=== PATIENT | male | born 1935 | race Caucasian/White ===

== ENCOUNTER 2023-04-15 11:36 | Outpatient (CLI) | payer MEDICARE, BC ==
[2023-04-15] VITALS (8 sets, daily range): BP systolic 113–132; BP diastolic 60–87; PULSE 44–79; TEMP 98.1
[~2023-04-15] VITALS: Ht 183 cm; Wt 97.4 kg
[2023-04-15] MEDS ORDERED: ZYLOPRIM 100MG100 MG PO (12:33)
[2023-04-15] MEDS ORDERED: LIPITOR20 MG PO (12:34)
[2023-04-15] MEDS ORDERED: ELIQUIS 2.5 PO (12:34)
[2023-04-15] MEDS ORDERED: ASPIRIN E.C. 8181 MG PO (12:34)
[2023-04-15] MEDS ORDERED: CALCIUM 600 PLU1 TAB PO (12:35)
[2023-04-15] MEDS ORDERED: FISH OIL 1000MG1 CAP PO (12:35)
[2023-04-15] MEDS ORDERED: FLONASEALLERGY NS (12:36)
[2023-04-15] MEDS ORDERED: LUTEIN20 M1 PO (12:37)
[2023-04-15] MEDS ORDERED: LASIX 40MG TABL40 MG PO (12:37)
[2023-04-15] MEDS ORDERED: TOPROL XL 25MG25 MG PO (12:43)
[2023-04-15] MEDS ORDERED: NITROSTAT0.4 MG/TAB SL (12:43)
[2023-04-15] MEDS ORDERED: PROTONIX 40MG T40 MG PO (12:44)
[2023-04-15] MEDS ORDERED: FLOMAX 0.40.4 MG/CAP PO (12:44)
--- NOTE | 2023-04-15 14:28 | NUR ---
Refer to [employer] report for procedural sedation/notes
[2023-04-15] MEDS ORDERED: Iohexol 300 - 100 ML VIAL IV ONE (15:17)
[2023-04-15] MEDS ORDERED: fentaNYL 50 MCG/ML 2 ML VIAL IV SCH (15:19)
[2023-04-15] MEDS ORDERED: Midazolam 2 MG/2 ML VIAL IV SCH (15:20)
== END 2023-04-15 17:30 | disposition home or self-care (01) ==
LOC: COL.CAR 11:36
DX: T82.590A Other mechanical complication of surgically created arteriovenous fistula, initial encounter (principal)
CPT/HCPCS: J1644; J2250; J3010; Q9967

== ENCOUNTER 2023-05-19 15:08 | Inpatient (IN) | payer MEDICARE, BC ==
[~2023-05-19] VITALS: Ht 180.3 cm; Wt 98.4 kg
[2023-05-19] VITALS (8 sets, daily range): BP systolic 109–154; BP diastolic 43–60; PULSE 90–96; TEMP 98.3–99
[~2023-05-19 15:08] MED LIST: ASPIRIN E.C. 8181 MG PO; CALCIUM 600 PLU1 TAB PO; ELIQUIS 2.5 PO; FISH OIL 1000MG1 CAP PO; FLOMAX 0.40.4 MG/CAP PO; FLONASEALLERGY NS; LASIX 80MG TABL80 MG PO; LIPITOR20 MG PO; LUTEIN20 M1 PO; NITROSTAT0.4 MG/TAB SL; PROTONIX 40MG T40 MG PO; TOPROL XL 25MG25 MG PO; ZYLOPRIM 100MG100 MG PO
[2023-05-19] MEDS ORDERED: NS 500 ML IV ONE (15:30)
[2023-05-19 15:54] LABS: BASO # 0.1 K/mm3 (0.0-0.2); BASO % 0.8 % (0.0-2.0); EOS % 0.3 % (0.0-4.0); GRAN # 5.3 K/mm3 (1.4-6.5); LYMPH # 0.8 K/mm3 (1.2-3.4); LYMPH % 11.9 % (20.0-51.0); MEAN CELL VOLUME 97 fl (80.0-100.0); MEAN CORPUSCULAR HGB CONC 32 g/dl (33.0-37.0); MEAN PLATELET VOLUME 10.3 fl (7.4-10.4); MONO # 0.5 K/mm3 (0.1-0.6); MONO % 7.5 % (1.7-9.3); PLATELET COUNT 95 K/mm3 (130-400); RED BLOOD COUNT 1.73 M/mm3 (4.20-5.60); REDCELL DISTRIBUTION WIDTH-CV 16.7 % (11.5-14.5)
[2023-05-19 16:05] LABS: HEMATOCRIT 16.7 % (42.0-52.0); HEMOGLOBIN 5.3 g/dl (13.5-18.0); MEAN CORPUSCULAR HEMOGLOBIN 31 pg (27-31)
[2023-05-19 16:08] LABS: ALBUMIN 2.8 gm/dL (3.4-4.8); BILIRUBIN,TOTAL 0.3 mg/dL (0.2-1.2); CALCIUM 7.9 mg/dL (8.4-10.2); CREATININE, serum 2.13 mg/dL (0.72-1.25); MAGNESIUM 1.9 mg/dL (1.6-2.6); TOTAL PROTEIN 5.5 gm/dL (6.2-8.1)
[2023-05-19] MEDS ORDERED: Ondansetron 4 MG/2 ML VIAL IV PRN (17:00)
[2023-05-19] MEDS ORDERED: Acetaminophen 500 MG TAB PO PRN (17:00)
--- NOTE | 2023-05-19 17:33 | NUR ---
PATIENT ARRIVED TO MEDICAL FLOOR AT APPROX 1700.
--- NOTE | 2023-05-19 18:24 | NUR ---
PATIENT RESTING IN BED. ALERT AND ORIENTED. ADMISSION ASSESSMENT AND INTAKE COMPLETE. PATIENT ABLE TO ANSWER ALL QUESTIONS. PATIENT STATED HE IS INCONINENT OF URINE AND OCCASIONALLY STOOL. BLOOD TINGED STOOL NOTED DURING BRIEF CHANGE. PATIENT'S SKIN IS FLAKY AND THIN. OPEN BLISTER NOTED TO LEFT OUTER ANKLE. FALL PRECAUTIONS IN PLACE. CALL LIGHT WITHIN REACH.
[2023-05-19] MEDS ORDERED: NS IV ONE (19:15)
[2023-05-19] MEDS ORDERED: PANTOPRAZOLE IV ONE (19:15)
[2023-05-19] MEDS ORDERED: [UNRECOGNIZED DRUG - OTHER] IV ONE (19:15)
[2023-05-19] MEDS ORDERED: CORDARONE200 MG/TAB PO (20:06)
[2023-05-19] MEDS ORDERED: Fluticasone Nasal 50 MCG/Spray 16 GM BOTTLE NS PRN (20:15)
[2023-05-19] MEDS ORDERED: Atorvastatin 20 MG TAB PO SCH (21:00)
[2023-05-20] VITALS (24 sets, daily range): BP systolic 83–142; BP diastolic 45–67; PULSE 88–141; TEMP 98.1–99.4
--- NOTE | 2023-05-20 00:44 | NUR ---
Patient lying in bed alert and oriented x4. pt denies chest pain and shortness of breath. director hair with pt to sign blood transfusion consent, completed. 1 unit of PRBC started at 1949 running at 60 ml/hr, this RN stayed at pt bedside for first 15 minutes, vitals stable, no pt concerns, rate adjusted to 125 ml/hr, transfusion ended at 2243. additional unit and recheck for am ordered by TUAN Everett notified at 2256 for official orders, placed, [facility] notified. 2nd unit of PRBC started at 0040, running at 60 ml/hr, vitals stable at this time. IV in RAC is patent, site is cleand dry and intact with blood transfusion running. left arm AV fistula with guaze covering and right chest catheter, with gauze dressing are clean dry and intact. dry scaly BLE with red/purplish coloring, small left outer ankle abrasion, dry blood noted, open to air. pt experiencing gas but has had no stool at this time and has no further needs, questions, or concerns at this time. fall precautions in place, call light within reach. will continue to monitor.
[2023-05-20 06:46] LABS: BASO # 0.1 K/mm3 (0.0-0.2); EOS # 0.1 K/mm3 (0.0-0.7); GRAN # 3.7 K/mm3 (1.4-6.5); GRAN % 62.5 % (42.2-75.2); LYMPH # 1.4 K/mm3 (1.2-3.4); MEAN CORPUSCULAR HGB CONC 35 g/dl (33.0-37.0); MEAN PLATELET VOLUME 10.3 fl (7.4-10.4); MONO # 0.6 K/mm3 (0.1-0.6); PLATELET COUNT 82 K/mm3 (130-400); RED BLOOD COUNT 1.93 M/mm3 (4.20-5.60); REDCELL DISTRIBUTION WIDTH-CV 17.4 % (11.5-14.5)
[2023-05-20 06:54] LABS: INR 1.3 (0.8-3.0); PROTHROMBIN TIME 13.7 SECONDS (9.7-12.8)
[2023-05-20 07:04] LABS: CALCIUM 7.4 mg/dL (8.4-10.2); CREATININE, serum 2.91 mg/dL (0.72-1.25); PHOSPHOROUS 3.9 mg/dL (2.3-4.7); POTASSIUM 3.9 mmol/L (3.5-4.5)
[2023-05-20 07:11] LABS: MEAN CELL VOLUME 90 fl (80.0-100.0); MEAN CORPUSCULAR HEMOGLOBIN 31 pg (27-31)
[2023-05-20 07:14] LABS: HEMATOCRIT 17.4 % (42.0-52.0)
--- NOTE | 2023-05-20 08:20 | NUR ---
PT LAYING IN BED UPON ENTERING. ASSESSMENT DONE, MEDS GIVEN WITH SMALL SIPS OF WATER. PT DENIES PAIN AND UPDATED ON BLOOD TRANSFUSION AND EGD PLANNED FOR THE DAY. PT VERBALIZED UNDERSTANDING AND BLOOD CONSENT SIGNED, EGD CONSENT NOT SIGNED DUE TO PT NOT BEING EDUCATED BY PROVIDER. INT TO RIGHT AC PATENT. PT HAS RIGHT CHEST HD PORT AND A FISTULA IN THE PROCESS OF BEING PLACED TO LEFT FOREARM. PT HAS A SMALL ABRASION TO LEFT ANKLE OPEN TO AIR. PT DENIES NEEDS. BED IN LOWEST POSITION, CALL LIGHT IN REACH, BED ALARM ON.
[2023-05-20] MEDS ORDERED: Allopurinol 100 MG TAB PO SCH (09:00)
[2023-05-20] MEDS ORDERED: Lutein 20 MG CAP PO SCH (09:00)
[2023-05-20] MEDS ORDERED: Amiodarone 200 MG TAB PO SCH (09:00)
[2023-05-20] MEDS ORDERED: Pantoprazole 40 MG in NS 10 ML IV SCH (09:00)
[2023-05-20] MEDS ORDERED: NS 1,000 ML IV SCH ×2 (13:00→16:00)
--- NOTE | 2023-05-20 13:21 | NUR ---
Ethylbenzene Oxidizer met with patient to discuss discharge planning. Patient lives alone in [place], [place] and sees Dr. Peña in [place] for primary care. Patient stated he does not drive himself to appointments, but takes the "[employer] bus". Patient uses both a cane and walker at home, reporting independence with ADLS. Patient stated his granddaughter helps him with shopping. Patient stated he believes his son, Henry (ph#[phone]) is his DPOA-HC. Patient advised his plan is to return home at time of discharge. SW contacted patient's son, Henry to discuss discharge planning. Henry requested SW contacted his sister, Adenike (ph#[phone]) who is an Occupation Therapist and a better point of contact for discussion of discharge planning. SW contacted Adenike who confirmed the above information and advised patient has a pretty good set up at home, however she is open to any recommendations. Adenike stated patient gets dialysis at [facility] and takes public transportation to this. Adenike advised if public transportation is unavailable, family is able to transport. Adenike stated she lives in [place] and her two brothers don't live locally, but that there is extended family available for assistance if needed. Adenike also provided that patient has a bed that can raise up along with a lift chair. CHACHO advised she would keep her updated with any discharge recommendations. Discharge Plan: Home, pending further recommendation
--- NOTE | 2023-05-20 13:37 | NUR ---
PT IN ENDO. BLOOD TRANSFUSION NOT COMPLETE, ENDO NURSE NOTIFIED AND TOOK PT DOWN WITH BLOOD INFUSING
[2023-05-20] MEDS ORDERED: Lidocaine PF 2% (20 MG/ML) 5 ML VIAL ONE (13:48)
[2023-05-20] MEDS ORDERED: Ondansetron 4 MG/2 ML VIAL IV PRN (14:15)
--- NOTE | 2023-05-20 15:03 | NUR ---
PT BACK FROM ENDO AND BLOOD COMPLETE. PT DENIES NEEDS AND GIVEN BROTH. FAMILY AT BEDSIDE. BED IN LOWEST POSITION, CALL LIGHT IN REACH, BED ALARM ON
--- NOTE | 2023-05-20 15:05 | NUR ---
ULISESITSAVANNAHT CALLED AND ASKED IF SHE WANTED A REPEAT H&H AFTER PTS BLOOD TRANSFUSION IS COMPLETE. HOSPITALIST OKAY WITH LAB BEING CHECKED WITH MORNING LABS ON 05/20.
[2023-05-20] MEDS ORDERED: PEG3350/Sod Sulf,Bicarb,Cl/KCl Oral Soln 4,000 ML Bottle PO SCH (17:30)
--- NOTE | 2023-05-20 18:45 | NUR ---
PT REPORTS DECREASED CHEST PAIN AND SOME SHORTNESS OF BREATH. HOSPITALIST NOTIFIED AND EKG ORDERED. PT EDUCATED ON BOWEL PREP AND VERBALIZED UNDERSTANDING.
[2023-05-20 19:12] LABS: BASO # 0.1 K/mm3 (0.0-0.2); EOS # 0.1 K/mm3 (0.0-0.7); EOS % 1.5 % (0.0-4.0); GRAN # 4.6 K/mm3 (1.4-6.5); GRAN % 66.6 % (42.2-75.2); LYMPH # 1.5 K/mm3 (1.2-3.4); LYMPH % 21.6 % (20.0-51.0); MEAN CELL VOLUME 90 fl (80.0-100.0); MEAN CORPUSCULAR HGB CONC 35 g/dl (33.0-37.0); MEAN PLATELET VOLUME 10.3 fl (7.4-10.4); MONO # 0.6 K/mm3 (0.1-0.6); MONO % 8.9 % (1.7-9.3); PLATELET COUNT 88 K/mm3 (130-400); RED BLOOD COUNT 2.03 M/mm3 (4.20-5.60); REDCELL DISTRIBUTION WIDTH-CV 17.2 % (11.5-14.5)
[2023-05-20 19:26] LABS: HEMATOCRIT 18.2 % (42.0-52.0); HEMOGLOBIN 6.3 g/dl (13.5-18.0); MEAN CORPUSCULAR HEMOGLOBIN 31 pg (27-31)
[2023-05-20 19:27] LABS: CALCIUM 7.4 mg/dL (8.4-10.2); CREATININE, serum 2.99 mg/dL (0.72-1.25); POTASSIUM 3.8 mmol/L (3.5-4.5)
[2023-05-20 19:44] LABS: TROPONIN-I 0.048 ng/mL (0.00-0.033)
[2023-05-20] MEDS ORDERED: NS 500 ML IV ONE (22:30)
[2023-05-21] VITALS (21 sets, daily range): BP systolic 99–130; BP diastolic 41–72; PULSE 73–139; TEMP 97.9–98.9
--- NOTE | 2023-05-21 02:20 | NUR ---
Noted that patient has a MEWs score of 4 due to blood pressure and pulse. Patient is currently getting blood transfusion due to GI Bleed. WESTON Brand has been notified of vitals. No new orders received. Will continue to monitor.
--- NOTE | 2023-05-21 03:25 | NUR ---
patient lying in bed, alert and oriented x4. pt denies chest pain and shortness of breath. 2004- TUAN Everett notified of critical labs, HGB 6.3 and troponin 0.048, order for 2 units of blood to be transfused placed. IV in RAC found pulled out, new IV placed in RAC, patent and site is clean dry and intact with blood transfusion running. first unit of blood started at 2240 running at 60 ml/hr, this RN remained for first 15 minutes, vitals stable, pt denies sensitivity, rate adjusted to 125 and then 150 ml/hr, ended at 0150, second unit started at 0250 first 15 min running at 60 ml/hr with RN in room and then running at 125 ml/hr. 2325- WESTON De León notified of pt's BPs in 80s/40s, blood continuing to transfuse, monitor. 0002- critical troponin 0.043 trending down called to WESTON De León. left arm AV fistula and right chest dialysis catheter with gauze dressingins are clean dry and intact. small abrasion on outer left ankle scabbed over, open to air, dry scaly red/purplish BLE noted. pt having multiple large amount of loose bloody stools, bowel prep continued. pt NPO at mn, understood. pt has no further needs, questions, or concerns at this time. tylenol given for neck discomfort per request. fall precautions in place, call light within reach. will continue to monitor.
--- NOTE | 2023-05-21 06:11 | NUR ---
notified WESTON De León about pt getting ready for dialysis this a.m., Sarthak reccomended pt receives dialysis treatment after colonoscopy with concern for pt's blood pressures throughout the night and having received 2 units of blood with continued active bleeding. dialysis nurse notified of recommendation.
[2023-05-21 06:53] LABS: BASO # 0.1 K/mm3 (0.0-0.2); BASO % 1.1 % (0.0-2.0); EOS # 0.1 K/mm3 (0.0-0.7); EOS % 0.8 % (0.0-4.0); GRAN # 4.4 K/mm3 (1.4-6.5); GRAN % 70.8 % (42.2-75.2); LYMPH # 1.2 K/mm3 (1.2-3.4); LYMPH % 19.1 % (20.0-51.0); MEAN CELL VOLUME 88 fl (80.0-100.0); MEAN CORPUSCULAR HGB CONC 34 g/dl (33.0-37.0); MEAN PLATELET VOLUME 10.1 fl (7.4-10.4); MONO # 0.5 K/mm3 (0.1-0.6); MONO % 7.7 % (1.7-9.3); PLATELET COUNT 85 K/mm3 (130-400); REDCELL DISTRIBUTION WIDTH-CV 16.6 % (11.5-14.5)
[2023-05-21] MEDS ORDERED: Albumin (Human) 100 ML IV SCH (07:00)
[2023-05-21 07:08] LABS: HEMATOCRIT 21.2 % (42.0-52.0); HEMOGLOBIN 7.3 g/dl (13.5-18.0); MEAN CORPUSCULAR HEMOGLOBIN 30 pg (27-31)
--- NOTE | 2023-05-21 08:27 | NUR ---
PT LAYING IN BED UPON ENTERING. ASSESSMENT DONE, MEDS GIVEN WITH A SIP OF WATER. PT DENIES PAIN OR SHORTNESS OF BREATH AT THIS TIME. INT TO RIGHT AC PATENT. PT UPDATED ON NPO STATUS, DIALYSIS THIS MORNING AND COLONOSCOPY SCHEDULED FOR THE DAY. DIALYSIS CONSENT SIGNED. WHEN EXPLAINING COLONSCOPY CONSENT PT UNABLE TO EXPLAIN PROCEDURE IN HIS OWN WORDS, PT STATES THAT HE DOESNT REMEMBER EVERYTHING EXPLAINED YESTERDAY AND WOULD LIKE TO HOLD OFF ON CONSENT AT THIS TIME. RIGHT CHEST HD CATH AND LEFT FOREARM FISTULA IN PLACE. PT DENIES NEEDS. BED IN LOWEST POSITION, CALL LIGHT IN REACH. PT TRANSFERRED TO DIALYSIS VIA STRETCHER.
--- NOTE | 2023-05-21 11:24 | NUR ---
Dialysis Note Pt arrived to tx via bed uf removed was 1 kg. Pt tolerated tx well and dcd back to room via bed without complaints.
--- NOTE | 2023-05-21 11:31 | NUR ---
PT BACK FROM DIALYSIS
--- NOTE | 2023-05-21 13:29 | NUR ---
PT IN ENDO
--- NOTE | 2023-05-21 15:45 | NUR ---
Open Hearth Furnace Laborer went to patient's room to meet [facility] him about discharge planning and he was in his colonoscopy. SW contacted patient's daughter, Adenike to discuss PT recommendation for post acute rehab. Adenike stated this would ultimately be up to patient, but she was agreeable to have referrals sent to [facility] and [facility]. Patient has bene to [place] [facility] in the past and had a good experience. Adenike was unsure which facility patient would prefer at this time. SW also discussed possible SNF options that can accept dialysis. Adenike mentioned [facility] and SW advised that they cannot accept patients on dialysis. SW gave referral to both [facility] and [facility].
[2023-05-21 17:04] LABS: BASO # 0.1 K/mm3 (0.0-0.2); BASO % 1.2 % (0.0-2.0); EOS # 0.1 K/mm3 (0.0-0.7); EOS % 2.2 % (0.0-4.0); GRAN # 2.9 K/mm3 (1.4-6.5); GRAN % 70.6 % (42.2-75.2); LYMPH # 0.7 K/mm3 (1.2-3.4); LYMPH % 16.9 % (20.0-51.0); MEAN CELL VOLUME 89 fl (80.0-100.0); MEAN CORPUSCULAR HGB CONC 35 g/dl (33.0-37.0); MEAN PLATELET VOLUME 9.8 fl (7.4-10.4); MONO # 0.4 K/mm3 (0.1-0.6); MONO % 8.6 % (1.7-9.3); PLATELET COUNT 70 K/mm3 (130-400); RED BLOOD COUNT 1.99 M/mm3 (4.20-5.60); REDCELL DISTRIBUTION WIDTH-CV 17.5 % (11.5-14.5)
[2023-05-21 17:15] LABS: HEMATOCRIT 17.7 % (42.0-52.0); HEMOGLOBIN 6.2 g/dl (13.5-18.0); MEAN CORPUSCULAR HEMOGLOBIN 31 pg (27-31)
--- NOTE | 2023-05-21 17:33 | NUR ---
HOSPITALIST NOTIFIED OF PTS HGB OF 6.2
--- NOTE | 2023-05-21 19:10 | NUR ---
REPORT GIVEN TO DANNY NOEL
--- NOTE | 2023-05-21 23:06 | NUR ---
PT ALERT AND ORIENTED. PLEASANT, GOOD HISTORIAN, VSS. SHIFT ASSESSMENT COMPLETE, MEDICATED PER EMAR. DENIES ANY PAIN AT THIS TIME, AND IS CURRENTLY RESTING IN BED. DENIES FURTHER NEED AT THIS TIME. CALL LIGHT WITHIN REACH, BED ALARM SET.
[2023-05-22] VITALS (18 sets, daily range): BP systolic 102–138; BP diastolic 44–60; PULSE 63–75; TEMP 98–98.7
--- NOTE | 2023-05-22 04:02 | NUR ---
SEE BLOOD TRANSFUSION DOCUMENTAION. PT TOLERATED TRANSFUSION WELL WITH NO SIGNS OF ADVERSE REACTION, VITAL SIGNS REMAIN STABLE. PT STARTED ON 2 LITERS O2 NASAL CANNULA R/T DESATURATION WHILE SLEEPING.
[2023-05-22 07:59] LABS: BASO # 0.1 K/mm3 (0.0-0.2); BASO % 1.2 % (0.0-2.0); EOS # 0.2 K/mm3 (0.0-0.7); EOS % 3.3 % (0.0-4.0); GRAN # 4.4 K/mm3 (1.4-6.5); GRAN % 72.4 % (42.2-75.2); LYMPH # 0.9 K/mm3 (1.2-3.4); LYMPH % 14.2 % (20.0-51.0); MEAN CELL VOLUME 89 fl (80.0-100.0); MEAN CORPUSCULAR HGB CONC 35 g/dl (33.0-37.0); MEAN PLATELET VOLUME 9.6 fl (7.4-10.4); MONO # 0.5 K/mm3 (0.1-0.6); MONO % 8.4 % (1.7-9.3); PLATELET COUNT 69 K/mm3 (130-400); RED BLOOD COUNT 2.43 M/mm3 (4.20-5.60); REDCELL DISTRIBUTION WIDTH-CV 16.3 % (11.5-14.5)
[2023-05-22 08:01] LABS: HEMATOCRIT 21.7 % (42.0-52.0); HEMOGLOBIN 7.5 g/dl (13.5-18.0); MEAN CORPUSCULAR HEMOGLOBIN 31 pg (27-31)
--- NOTE | 2023-05-22 10:18 | NUR ---
PT LAYING IN BED UPON ENTERING EATING BREAKFAST. ASSESSMENT DONE, MEDS GIVEN PER ORDER. PT DENIES PAIN. INT TO RIGHT AC PATENT. PT DENIES NEEDS AT THIS TIME AND UPDATED ON PLAN FOR TAG STUDY, PT VERBALIZED UNDERSTANDING. HD CATH TO RIGHT CHEST CLEAN DRY AND INTACT. FISTULA TO LEFT LOWER EXTREMITY CLEAN DRY AND INTACT. PT DENIES NEEDS. BED IN LOWEST POSITION, CALL LIGHT IN REACH, BED ALARM ON
--- NOTE | 2023-05-22 10:51 | NUR ---
PT IN NUCLEAR MEDICINE
[2023-05-22] MEDS ORDERED: OCUVITE1 TA1 PO ×2 (12:16→12:17)
[2023-05-22] MEDS ORDERED: ICAPS AREDS2 S1 EACH PO (12:16)
[2023-05-22] MEDS ORDERED: Eye Formula MVI w/Minerals TABLET PO SCH ×2 (13:19→13:30)
--- NOTE | 2023-05-22 15:05 | NUR ---
report given to ryan, rn
[2023-05-22] MEDS ORDERED: Benzonatate 100 MG CAP PO SCH (21:00)
--- NOTE | 2023-05-22 21:28 | NUR ---
PT ALERT AND ORIENTED X4. SHIFT ASSESSMENT COMPLETE, MEDICATED PER EMAR. TESSALON PEARNS GIVEN PER PT REQUEST TO HELP WITH COUGH. VSS, DENIES PAIN AT THIS TIME. CALL LIGHT WITHIN REACH BED ALARM ENGAGED.
[2023-05-23] VITALS (12 sets, daily range): BP systolic 124–168; BP diastolic 55–64; PULSE 67–85; TEMP 97.9–98.3
[2023-05-23 07:22] LABS: BASO # 0.1 K/mm3 (0.0-0.2); BASO % 1.1 % (0.0-2.0); EOS # 0.3 K/mm3 (0.0-0.7); EOS % 4.3 % (0.0-4.0); GRAN # 4.6 K/mm3 (1.4-6.5); GRAN % 73.4 % (42.2-75.2); LYMPH # 0.9 K/mm3 (1.2-3.4); LYMPH % 13.9 % (20.0-51.0); MEAN CELL VOLUME 92 fl (80.0-100.0); MEAN CORPUSCULAR HGB CONC 33 g/dl (33.0-37.0); MEAN PLATELET VOLUME 11.1 fl (7.4-10.4); MONO # 0.4 K/mm3 (0.1-0.6); PLATELET COUNT 66 K/mm3 (130-400); RED BLOOD COUNT 2.65 M/mm3 (4.20-5.60); REDCELL DISTRIBUTION WIDTH-CV 16.8 % (11.5-14.5)
[2023-05-23 07:23] LABS: HEMATOCRIT 24.3 % (42.0-52.0); HEMOGLOBIN 8.1 g/dl (13.5-18.0); MEAN CORPUSCULAR HEMOGLOBIN 31 pg (27-31)
--- NOTE | 2023-05-23 08:33 | NUR ---
PT LAYING IN BED UPON ENTERING. ASSESSMENT DONE, MEDS GIVEN PER ORDER. PT DENIES PAIN. UPPER LOBES CLEAR AND CRACKLES HEARD IN BILATERAL BASES. BREAKFAST ORDERED AND PT TRANSFERRED TO CHAIR FOR MEALS. PT DENIES NEEDS. CATRACHO, PHYSICAL THERAPY AT BEDSIDE. CHAIR ALARM ON, CALL LIGHT IN REACH
[2023-05-23] MEDS ORDERED: NS 1,000 ML IV SCH (12:15)
--- NOTE | 2023-05-23 15:38 | NUR ---
PT AMBUALTED TO BATHROOM 1 ASSIST WITH WALKER AND GAIT BELT. BED BATH GIVEN, LINEN AND GOWN CHANGED. PT REPOSITIONED IN BED AND DENIES NEEDS AT THIS TIME. BED IN LOWEST POSITION, CALL LIGHT IN REACH, BED ALARM ON
--- NOTE | 2023-05-23 18:57 | NUR ---
REPORT GIVEN TO WINNIE, RN
--- NOTE | 2023-05-23 20:30 | NUR ---
UPON SHIFT ASSESSMENT, CITLALI (DANIEL) WAS AWAKE IN BED AND AXO X4. HE DENIES SOA AND CHEST PAIN. CURRENTLY TELE IS NS AND VS ARE WNL. CITLALI DENIES ANY OTHER PAIN OR NEEDS AT THIS TIME. CALL LIGHT WITHIN REACH, BED ALARM ON.
[2023-05-23 22:20] LABS: CALCIUM 6.7 mg/dL (8.4-10.2); CREATININE, serum 2.89 mg/dL (0.72-1.25); POTASSIUM 3.6 mmol/L (3.5-4.5)
[2023-05-24] VITALS (12 sets, daily range): BP systolic 122–157; BP diastolic 62–86; PULSE 70–92; TEMP 97.6–98.5
--- NOTE | 2023-05-24 01:14 | NUR ---
CALLED DANNY ESCOTO RAPID HEART RATE WITH PATIENT INTO 140s/ rn contacting
--- NOTE | 2023-05-24 01:38 | NUR ---
CALL PLACED TO HOSPITALISTSVEN. TELE ALERTED THIS NURSE OF HR IN 130'S. VITAL SIGNS 149/80 BP, 95 % 02 ON RA AND PULSE 128. TORB FOR EKG, MORNING LABS WITH MAG TO BE DRAWN NOW AND ADMINISTER METOPROLOL GIVEN.
[2023-05-24 02:37] LABS: BASO # 0.1 K/mm3 (0.0-0.2); BASO % 1.3 % (0.0-2.0); EOS # 0.3 K/mm3 (0.0-0.7); EOS % 4.9 % (0.0-4.0); GRAN # 4.6 K/mm3 (1.4-6.5); GRAN % 72.2 % (42.2-75.2); LYMPH # 0.9 K/mm3 (1.2-3.4); LYMPH % 13.8 % (20.0-51.0); MEAN CELL VOLUME 92 fl (80.0-100.0); MEAN CORPUSCULAR HGB CONC 34 g/dl (33.0-37.0); MEAN PLATELET VOLUME 9.4 fl (7.4-10.4); MONO # 0.5 K/mm3 (0.1-0.6); MONO % 7.5 % (1.7-9.3); PLATELET COUNT 94 K/mm3 (130-400); RED BLOOD COUNT 2.66 M/mm3 (4.20-5.60); REDCELL DISTRIBUTION WIDTH-CV 16.6 % (11.5-14.5)
[2023-05-24 02:38] LABS: HEMATOCRIT 24.5 % (42.0-52.0); HEMOGLOBIN 8.3 g/dl (13.5-18.0); MEAN CORPUSCULAR HEMOGLOBIN 31 pg (27-31)
[2023-05-24 02:51] LABS: CALCIUM 7.5 mg/dL (8.4-10.2); CREATININE, serum 2.64 mg/dL (0.72-1.25); POTASSIUM 3.3 mmol/L (3.5-4.5)
--- NOTE | 2023-05-24 03:01 | NUR ---
CALL PLACED TO HOSPITALISTSVEN. LAB RESULTS AND EKG. TORB TO REPLACE POTASSIUM GIVEN.
[2023-05-24] MEDS ORDERED: *Potassium Replacement Protocol MC SCH (06:45)
[2023-05-24] MEDS ORDERED: Potassium Bicarbonate/Citrate 20 MEQ Effervescent TAB PO ONE ×2 (06:45→09:30)
--- NOTE | 2023-05-24 11:44 | NUR ---
DIALYSIS NOTE PT ARRIVED TO TX VIA WC. UF REMOVED 2.8 KG. PT TOLERATED TX WELL. DCD BACK TO ROOM WITHOUT COMPLAINTS
--- NOTE | 2023-05-24 12:21 | NUR ---
Patient to dialysis via w/c at 0745 and returned to room at 1100. Rested in bed after returning to room. ambulating with physical therapy in hallway. Pt denies pain or needs at this time.
--- NOTE | 2023-05-24 14:35 | NUR ---
Computer Networking Instructor Adjunct was notified that patient is too functional for IPR. SW did contact [facility] and faxed clinical updates for their review. No final determination at this time. CHACHO met with patient and his daughter, Adenike on speakerphone to provide update. SW also provided Medicare.gov list of SNF options. Patient's first preference is [facility]. CHACHO advised she would still send a referral, however they have been full this week. Patient is agreeable to have referrals sent to [facility], [facility], and [facility]. SW sent referral to all three. Discharge Plan: IPR declined, [facility] and SNF referrals pending
--- NOTE | 2023-05-24 20:30 | NUR ---
UPON SHIFT ASSESSMENT, CITLALI WAS SITTING IN BEDSIDE RECLINER WITH VIVITING FLUE BLOWER/CLERGY. HE IS PLESANT AND AXO X 4. HE DENIES CHEST PAIN OR SOA AT THIS TIME. VS ARE WNL AND TELE IS NS AT 89 BPM. LT EYE SLIGHTLY RED AND CITLALI STILL HAS FINE CRACKLES IN UPPER LOBES THAT CLEAR WITH COUGH, OTHERWISE, DENIES ANY NEEDS AT THIS TIME. CHAIR ALARM ON AND CALL LIGHT WITHIN REACH.
--- NOTE | 2023-05-24 20:40 | NUR ---
Pt sat up in chair most of afternoon into the evening. SBA with walker. On RA. Denies SOA at rest or with exertion. NSR. Rt HD cath and fistula to LFA. Denies pain or needs at this time.
[2023-05-25] VITALS (7 sets, daily range): BP systolic 118–127; BP diastolic 54–65; PULSE 55–66; TEMP 97.9–98.3
--- NOTE | 2023-05-25 02:00 | NUR ---
ROUNDED ON PATIENT. CITLALI IS SLEEPING SOUNDLY, VS ARE WNL. NO VISIBLE SIGNS OF DISTRESS.
--- NOTE | 2023-05-25 07:45 | NUR ---
Pt. up in chair. A&Ox4, vitals WNL. States of no pain. Int in right AC (dry/intact). Dialysis access por dressing dry/intact. BLE flaky, lotion applied. Fistula in left arm, bruit auscultated , and thrill palpated.
--- NOTE | 2023-05-25 08:00 | NUR ---
PT SITTING IN CHAIR UPON ENTERING. ASSESSMENT DONE, MEDS GIVEN BY MACT RESIDENTIAL MORTGAGE MANAGER STUDENT. PT DENIES PAIN. INT TO RIGHT AC PATENT. HD CATH THE RIGHT CHEST AND FISTULA TO LEFT FOREARM, BOTH CLEAN DRY AND INTACT. BREAKFAST SET UP AND PT DENIES NEEDS. CHAIR ALARM ON, CALL LIGHT IN REACH
--- NOTE | 2023-05-25 09:30 | NUR ---
POTASSIUM LAB DRAWN AROUND 0630 AND ROUTINE LABS ORDERED AROUND 0800. ACCOUNT EXECUTIVE METALWORKING ASKED THIS NURSE IF ROUTINE LABS CAN BE RUN WITH POTASSIUM FROM 0630, THIS NURSE TOLD TECH THAT WAS FINE. DURING ROUNDS HOSPITALIST ASKING ABOUT LABS AND THIS NURSE UPDATED HER ON CONVERSATION WITH LAB. 0630 ADN 0800 LABS SHOWING CANCELLED. THIS NURSE CALLED LAB AND THEM. TECH TOLD THIS NURSE THAT THEY CAN SEE THAT LABS WERE RESULTED, THIS NURSE TOLD TECH THAT IT SAYS CANCELLED FROM OUR SIDE AND WE CANT SEE RESULTS. ACCOUNT EXECUTIVE METALWORKING REPEATEDLY SAYING THEY CAN SEE IT. NO SOLUTION OFFERED PER TECH AND THIS NURSE ASKED FOR FAXED LAB RESULTS. CBC FAXED TO FLOOR MISSING BMP. LAB CALLED AGAIN AND NOTIFIED OF THIS. THIS NURSE TOLD THAT NOW THEY ARE UNABLE TO SEE CBC OR BMP DUE TO CANCELLED ORDER. ACCOUNT EXECUTIVE METALWORKING ON THE FLOOR AND TOLD THIS NURSE THAT IT SHOULD BE FIXED
[2023-05-25 10:00] LABS: BASO # 0.1 K/mm3 (0.0-0.2); BASO % 1.3 % (0.0-2.0); EOS # 0.4 K/mm3 (0.0-0.7); EOS % 5.9 % (0.0-4.0); GRAN # 4.9 K/mm3 (1.4-6.5); GRAN % 70.2 % (42.2-75.2); LYMPH % 14.4 % (20.0-51.0); MEAN CELL VOLUME 95 fl (80.0-100.0); MEAN CORPUSCULAR HGB CONC 33 g/dl (33.0-37.0); MEAN PLATELET VOLUME 9.3 fl (7.4-10.4); MONO # 0.5 K/mm3 (0.1-0.6); MONO % 7.8 % (1.7-9.3); PLATELET COUNT 107 K/mm3 (130-400); RED BLOOD COUNT 2.85 M/mm3 (4.20-5.60); REDCELL DISTRIBUTION WIDTH-CV 16.7 % (11.5-14.5)
[2023-05-25 10:01] LABS: HEMOGLOBIN 8.9 g/dl (13.5-18.0); MEAN CORPUSCULAR HEMOGLOBIN 31 pg (27-31)
[2023-05-25 10:13] LABS: CALCIUM 7.6 mg/dL (8.4-10.2); CREATININE, serum 2.29 mg/dL (0.72-1.25); POTASSIUM 3.8 mmol/L (3.5-4.5)
[2023-05-25] MEDS ORDERED: PROTONIX 40MG T40 MG PO (11:03)
--- NOTE | 2023-05-25 11:25 | NUR ---
Creative Perfumer spoke with Betito at [facility] who can accept patient today. SW met with patient and he is agreeable to this plan as he would like to stay in [place] and continue with [facility]. CHACHO presented and reviewed IM form with patient who verbalized understanding and provided signature. CHACHO placed form in chart then provided copy to patient. CHACHO also contacted Adenike, daughter to notify her of discharge plan. CHACHO contacted Betito at set transport time for 1400. CHACHO provided time to patient and also left a message for Adenike with transport time. CHACHO then faxed orders to [facility] [place]. Discharge Plan: [facility]
--- NOTE | 2023-05-25 14:00 | NUR ---
IV AND TELE REMOVED. PT DRESSED IN PERSONAL CLOTHES. [facility]IA [facility] STAFF ON FLOOR, PACKET GIVEN TO FEMALE STAFF. PT TRANSFERRED TO WHEELCHAIR AND ESCORTED TO [facility] TRANSPORTATION. PT DENIES NEEDS
== END 2023-05-25 14:10 | DRG 377 ==
LOC: COL.ER 15:08 → MEDICAL 16:29
PROVIDERS: Family Medicine; Internal Medicine; Internal Medicine Nephrology; Nurse Practitioner Family; Physician Assistant; ADMIT Internal Medicine
PROC: 0DB68ZX Excision of Stomach, Via Natural or Artificial Opening Endoscopic, Diagnostic (ICD-10-PCS; principal; 2023-05-19)
PROC: 0DJD8ZZ Inspection of Lower Intestinal Tract, Via Natural or Artificial Opening Endoscopic (ICD-10-PCS; 2023-05-19)
DX: K29.71 Gastritis, unspecified, with bleeding (principal); N18.6 End stage renal disease; D62 Acute posthemorrhagic anemia; I12.0 Hypertensive chronic kidney disease with stage 5 chronic kidney disease or end stage renal disease; I48.92 Unspecified atrial flutter; Z99.2 Dependence on renal dialysis; I48.91 Unspecified atrial fibrillation; Z79.01 Long term (current) use of anticoagulants; E87.6 Hypokalemia; N40.0 Benign prostatic hyperplasia without lower urinary tract symptoms; M10.9 Gout, unspecified; E78.5 Hyperlipidemia, unspecified; K21.9 Gastro-esophageal reflux disease without esophagitis; E66.9 Obesity, unspecified; Z68.30 Body mass index [BMI] 30.0-30.9, adult
CPT/HCPCS: A9560; C9113; J2704; J7030; J7040; P9016; P9047; Q3014